=== PATIENT | male | born 1970 | race Caucasian/White ===

== ENCOUNTER 2021-07-26 16:38 | Inpatient (IN) | payer SELFPAY ==
[~2021-07-26] VITALS: Ht 182.9 cm; Wt 78.0 kg
[2021-07-26] MEDS ORDERED: ENOXAPARIN 40 MG/0.4 ML (LOVENOX) SYR SC SCH (16:45)
[2021-07-26 17:30] VITALS: BP 166/107
[2021-07-26 19:53] VITALS: BP 161/104
[2021-07-26 20:00] VITALS: BP 135/63
[2021-07-26 22:00] VITALS: BP 164/99
[2021-07-27 00:07] VITALS: BP 146/95
[2021-07-27 04:09] VITALS: BP 166/106
[2021-07-27 07:36] VITALS: BP 167/114
[2021-07-27] MEDS: FUROSEMIDE 40 MG/4 ML INJ (LASIX) IVP SCH ×2 (07:38→17:36)
[2021-07-27] MEDS: ASPIRIN 81 MG CHEW (CHILDREN'S ASA) PO SCH (08:01)
--- NOTE | 2021-07-27 08:24 | History & Physical-Hospitalist ---
History of Present Illness HPI/Chief Complaint Pt is a 51yoCM who presented to OSH due to SOB. He was admitted to [facility] for acute hypoxic respiratory failure on July 22. This was presumed to be a COPD exacerbation and he was discharged on July 24 with prednisone and Keflex. He is compliant with his medicines but onset of pain in the evening he developed shortness of breath taken to seek evaluation in the emergency department. Chest x-ray revealed pulmonary edema and BNP was elevated to 750. He was hypoxic to the 80s on arrival. He was placed on 6 L/min high flow nasal cannula and given 40 mg of IV Lasix there. This improved his symptoms. He was found to have a mild elation of troponin of 0.07 which trended up to 0.1. He was transferred here for cardiac evaluation. He has not seen a doctor since 1999. He knows of no new medical problems. He does report feeling much better today and shortness of breath is improved. He has been hypertensive throughout his stay here. Source: patient Exam Limitations: no limitations Date Seen 07/27/21 Time Seen by a Provider: 08:22 Attending Physician Jagruti Chan MD PCP Referring Physician Date of Admission Jul 26, 2021 at 17:22 Home Medications & Allergies Home Medications Reviewed patient Home Medication Reconciliation performed by pharmacy medication reconciliations flight technician and/or nursing. Patients Allergies have been reviewed. Allergies Allergies Coded Allergies Penicillins (Verified Allergy, Mild, 07/26/21) NAUSEA- HAS BEEN 30 YEARS SINCE HE'S TAKEN ANY Past [id number] Hx Patient Social History Tobacco Use?: Yes Smoking Status: Current Everyday Smoker Smokeless Tobacco Frequency: Current Everyday User Substance use?: No Alcohol Use?: No Pt feels they are or have been: No Current Status Advance Directives: No Communicates: Verbally Primary Language: Faroese Is interpretation needed?: No Sensory deficits: Vision impairment Past Medical History Hypertension Family Medical History Reviewed Nursing Family Hx mom and dad alive- dad on hospice Review of Systems Constitutional: No chills, No fever, No malaise, No weakness EENTM: no symptoms reported Respiratory: cough, dyspnea on exertion, orthopnea, short of breath Cardiovascular: No chest pain, No palpitations Gastrointestinal: No abdominal pain, No constipation, No diarrhea, No nausea, No vomiting Genitourinary: no symptoms reported Musculoskeletal: no symptoms reported Skin: no symptoms reported Psychiatric/Neurological: No Symptoms Reported Physical Exam Physical Exam Vital Signs Vital Signs - First Documented 07/26/21 17:30 Temp 36.5 Pulse 67 Resp 18 B/P (MAP) 166/107 (126) Pulse Ox 97 O2 Delivery Room Air Capillary Refill : Height, Weight, BMI Height: '" Weight: lbs. oz. kg; 23.31 BMI Method: General Appearance: No Apparent Distress, WD/WN HEENT: PERRL/EOMI, Moist Mucous Membranes; No Scleral Icterus (L), No Scleral Icterus (R) Neck: Normal Inspection, Supple Respiratory: Lungs Clear, No Accessory Muscle Use, No Respiratory Distress Cardiovascular: Regular Rate, Rhythm, No Murmur Gastrointestinal: Normal Bowel Sounds, Non Tender, Soft Extremity: Normal Capillary Refill, No Calf Tenderness, No Pedal Edema Neurologic/Psychiatric: Alert, Oriented x3, Normal Mood/Affect Results Results/Procedures Labs Laboratory Tests 07/27/21 08:35 Patient resulted labs reviewed. Assessment/Plan Admission Diagnosis Acutely decompensated heart failure Admission Status: Inpatient Order (span 2 midnights) Reason for Inpatient Admission: see below Assessment and Plan Acutely decompensated heart failure Acute hypoxic respiratory failure NSTEMI HTN Cardiology consulted, appreciate recs Continue Metoprolol Continue Lasix Echo revealed EF of 40-45%, Lisinopril added Planning cardiac cath per cardiology note Monitor BP as remains elevated with metoprolol Lovenox, therapeutic dose for NSTEMI Hyperglycemia Check fasting in AM Likely undiagnosed DM or prediabetes as has not seen a physician in 17 years Elevated creatinine Creatinine 1.32, unsure of baseline Trend Tobacco abuse Recommended cessation DVT ppx: Lovenox JAGRUTI CHAN MD Jul 27, 2021 08:24
[2021-07-27 08:45] LABS: HEMATOCRIT 44 % (40-54); HEMOGLOBIN 14.5 g/dL (13.3-17.7); MEAN CORPUSCULAR HEMOGLOBIN 29 pg (25-34); MEAN CORPUSCULAR HGB CONC 33 g/dL (32-36); MEAN CORPUSCULAR VOLUME 88 fL (80-99); MEAN PLATELET VOLUME 10.5 fL (9.0-12.2); PLATELET COUNT 232 10^3/uL (130-400)
[2021-07-27] MEDS ORDERED: FUROSEMIDE 40 MG/4 ML INJ (LASIX) IV SCH (09:00)
--- NOTE | 2021-07-27 09:04 | Consultation-Cardiology ---
HPI-Cardiology Cardiology Consultation Date of Consultation 07/27/21 Date of Admission Time Seen by Provider: 08:22 Indication: Dyspnea, elevated BNP and troponin HPI Patient is a 51 y/o male with history of tobaccoism. Does not regularly follow with a physician. Presented to [facility] on Sunday with acute, abrupt onset of dyspnea, acute respiratory, had elevated BNP, mildly elevated troponin. CTA chest was negative for PE. Treated for possible pneumonia and discharged home on the on antibiotic, steroid, Toprol XL and ASA. Patient reports he began to be more short of breath at home and returned to ER on 07/26/21 and transferred to [facility]. Upon interviewing patient he denies any chest pain, states dyspnea has improved. Denies dizziness, lightheadedness or syncope. Denies any peripheral edema 51 years old gentleman admitted with increasing shortness of breath, sudden onset, had leukocytosis initially, seen in [facility] and discharged home return for severe dyspnea, had elevated BNP and troponin, no chest pain. No syncope. Home Medications & Allergies Allergies: Coded Allergies: Penicillins (Verified Allergy, Mild, 07/26/21) NAUSEA- HAS BEEN 30 YEARS SINCE HE'S TAKEN ANY Home Medication List Reviewed: Yes [id number] Hx Patient Social History Marital Status: Employed/Student: employed Smoking Status: Current Everyday Smoker Have you traveled recently?: No Alcohol Use?: No Past Medical History HTN, Tobaccoism Family Medical History Significant Family History: No Pertinent Family Hx Family Medical Hx Strong family history of heart disease with multiple family members Review of Systems-General Review of Systems Constitutional: no symptoms reported, see HPI, chills; No dizziness, No fever, No weakness EENTM: see HPI, no symptoms reported; No blurred vision, No double vision Respiratory: see HPI, dyspnea on exertion, orthopnea, short of breath; No wheezing Cardiovascular: see HPI; No chest pain; edema; No Hx of Intervention, No palpitations Gastrointestinal: no symptoms reported, see HPI; No abdominal pain, No constipation Genitourinary: see HPI; No dysuria, No frequency Musculoskeletal: see HPI; No back pain, No joint pain Skin: see HPI; No lesions Psychiatric/Neurological: See HPI Reviewed Test Results Reviewed Test Results Lab Laboratory Tests 07/27/21 08:35: White Blood Count 10.0, Red Blood Count 5.01, Hemoglobin 14.5, Hematocrit 44, Mean Corpuscular Volume 88, Mean Corpuscular Hemoglobin 29, Mean Corpuscular Hemoglobin Concent 33, Red Cell Distribution Width 13.8, Platelet Count 232, Mean Platelet Volume 10.5, Sodium Level 137, Potassium Level 3.3L, Chloride Level 100, Carbon Dioxide Level 23, Anion Gap 14, Blood Urea Nitrogen 21H, Creatinine 1.32H, Estimat Glomerular Filtration Rate 57, BUN/Creatinine Ratio 16, Glucose Level 154H, Calcium Level 8.8, Troponin I 0.114H, B-Type Natriuretic Peptide 398.2H ECG Impression ECG Initial ECG Rhythm: Normal Sinus Physical Exam Physical Exam Vital Signs Vital Signs - First Documented 07/26/21 17:30 Temp 36.5 Pulse 67 Resp 18 B/P (MAP) 166/107 (126) Pulse Ox 97 O2 Delivery Room Air Capillary Refill : Height, Weight, BMI Height: '" Weight: lbs. oz. kg; 23.31 BMI Method: General Appearance: No Apparent Distress, WD/WN HEENT: PERRL/EOMI, Normal ENT Inspection Neck: Non Tender, Supple Respiratory: Chest Non Tender, Lungs Clear Cardiovascular: Regular Rate, Rhythm, No Edema, No JVD, No Murmur, Normal Peripheral Pulses Gastrointestinal: Non Tender, Soft Extremity: Non Tender, No Calf Tenderness, No Pedal Edema Neurologic/Psychiatric: Alert, Oriented x3 A/P-Cardiology Admission Diagnosis Dyspnea Elevated BNP Elevated troponin HTN Assessment/Plan Congestive heart failure, acute left ventricular systolic dysfunction, unknown etiology, probably ischemic in nature. Noted to have elevated BNP and mild elevation in troponin. I will proceed with left heart catheterization possible PTCA Shortness of breath, angina equivalent. No chest pain was reported. Planning to proceed with heart catheterization possible PTCA. Echocardiogram done showing diffuse left ventricular hypokinesia with ejection fraction 40 to 45%. Monitor and planning to initiate beta-blockers and BETH inhibitors Mild elevation in troponin, severe cardiomyopathy. Planning for cardiac catheterization. Hypertension, started on Toprol-XL 25 mg daily, I will add lisinopril 5 mg daily and evaluate tolerance and response Questionable HLP, I will evaluate lipid profile Renal insufficiency, continue to monitor renal function Hyperglycemia, probable undiagnosed DM, management per medical services Hypokalemia, replace and continue to monitor. Obesity Tobaccoism Thank you for allowing us to participate in the management of Mr. Wray. This is Jimenez Lomeli PA-C, as a scribe for Dr. Thomas. Patient was seen and evaluated with Jimenez, examination performed, management plan was discussed, agree with the current scribed note, I made few changes to the note using Italic font JIMENEZ BORGES Jul 27, 2021 09:04 BETH THOMAS MD Jul 27, 2021 13:19
[2021-07-27 09:07] LABS: CALCIUM 8.8 MG/DL (8.5-10.1); CREATININE SERUM 1.32 MG/DL (0.60-1.30); POTASSIUM 3.3 MMOL/L (3.6-5.0)
[2021-07-27] MEDS ORDERED: METO-333 PO (09:22)
[2021-07-27] MEDS ORDERED: CEPH500C PO (09:22)
[2021-07-27] MEDS ORDERED: ASPI-1238 PO (09:22)
[2021-07-27] MEDS ORDERED: PRD10T PO (09:22)
[2021-07-27] MEDS: ENOXAPARIN 80 MG/0.8 ML (LOVENOX) SYR SC SCH ×2 (09:33→19:55)
[2021-07-27] MEDS: NS IV 1000 ML 1,000 ML IV SCH ×3 (11:31→19:55)
[2021-07-27 11:39] VITALS: BP 150/100
[2021-07-27] MEDS ORDERED: KCL 20 MEQ TAB (K-DUR) PO ONE (12:00)
[2021-07-27] MEDS ORDERED: LIDOCAINE 1% INJ 20 ML 20 ML VIAL ONE (15:49)
[2021-07-27] MEDS ORDERED: HEParin (CATH LAB) 2,000 ML IV ONE (15:50)
[2021-07-27 16:06] VITALS: BP 173/98
[2021-07-27] MEDS ORDERED: fentaNYL INJ 100 MCG/2 ML AMP ONE (16:07)
[2021-07-27] MEDS ORDERED: MIDAZOLAM 5 MG/5 ML (VERSED) VIAL ONE (16:07)
[2021-07-27] MEDS ORDERED: VERAPAMIL 5 MG/2 ML (CALAN) VIAL IV ONE (16:23)
[2021-07-27] MEDS ORDERED: HEParin 1000 UNIT/ML (10ML VIAL) FOR BOLUS ONE (16:24)
[2021-07-27] MEDS ORDERED: NITRO DRIP 25000 MCG/D5W 250 ML IV ONE (16:24)
--- NOTE | 2021-07-27 17:04 | Conscious Sedation/ASA ---
Conscious Sedation Pre-Proced Time 14:00 ASA Score 3 For ASA 3 and 4: Consider anesthesia and medical clearance. Also, for patients with a history of failed moderate sedation consider anesthesia. Airway Lungs Heart ASA score ASA 1: a normal healthy patient ASA 2: a patient with a mild systemic disease (mid diabetes, controlled hypertension, obesity x ASA 3: a patient with a severe systemic disease that limits activity (angina, COPD, prior Myocardial infarction) ASA 4: a patient with an incapacitating disease that is a constant threat to life (CHF, renal failure) ASA 5: a moribund patient not expected to survive 24 hrs. (ruptured aneurysm) ASA 6: a declared brain- patient whose organs are being harvested. For emergent operations, add the letter E after the classification Mallampati Classification Grade 3 Sedation Plan Analgesia, Amnesia, Plan communicated to team members, Discussed options with patient/fam, Discussed risks with patient/fam The patient is an appropriate candidate to undergo the planned procedure, sedation, and anesthesia. The patient immediately re-assessed prior to indication. BETH JORGENSEN MD Jul 27, 2021 17:04
--- NOTE | 2021-07-27 17:07 | Cardiac Cath Report ---
Cardiac Cath Report Physician (s)/Hydroelectric Production Manager (s) Physician BETH JORGENSEN MD Pre-Procedure Diagnosis Pre-Procedure Diagnosis: CAD Post-Procedure Note Procedure Start Date: Jul 27, 2021 Name of Procedure: Left heart catheterization Findings/Procedure Note PROCEDURE NOTE: 51 years old gentleman admitted with non-ST elevation myocardial infarction, congestive heart failure, scheduled for cardiac catheterization possible PTCA After explaining the procedure to the patient, all pros and cons were explained, all questions were answered. The patient signed the consent and then he was placed on the cardiac catheterization laboratory. Groin was prepped SL fashion local anesthesia was used. Sheath placed in the right radial artery, Desha catheter was advanced to the left ventricular cavity, pressure was measured, pullback LV to aorta was done, intubated the right and left coronary system, angiogram was done. Patient was noted to have total occlusion of the first obtuse marginal branch with some collateral filling the distal obtuse marginal branch. I decided to attempt intervention, given a total of 7000 units of heparin, I tried with a EBU guide, FL guide, BMW wire and whisper wire, I had difficulty crossing the lesion and was unable to advance a balloon. 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 I decided to abort the procedure. Angiogram showed no changes. At the end of the procedure the sheath was removed. Vascular band deployed FINDINGS: Hemodynamics LV 147/24, end-diastolic pressure of 24 Aorta 151/96 mean of 118 ANATOMY: Left Main has no obstructive disease Left Anterior Descending is slightly tortuous with mild to moderate disease in the proximal and midportion nonobstructive disease Left Circumflex has mild to moderate disease, total occlusion of the first obtuse marginal branch, attempt for intervention failed to reestablish flow. Right Coronary Artery is moderate in size with nonobstructive disease LV Gram was not done, pressure was measured CONCLUSION: 1. Total occlusion of the first obtuse marginal branch, small to moderate in size, attempt to cross the lesion with multiple wires and balloon has failed. Appeared to have collateral filling the distal which is a hairline artery. 2. Mild to moderate disease otherwise 3. Normal left ventricular size and function DISCUSSION AND RECOMMENDATION: I will maximize medical therapy with aspirin, Plavix, statin, beta-blockers and ARB. Anesthesia Type: Conscious Sedation Estimated blood loss (mL): 50 ml Contrast Amount: 161 ml Total Radiation Dose: 2101 mGy Post-Procedure Diagnosis Post-operative diagnosis: NSTEMI Congestive heart failure, acute left ventricular systolic dysfunction, ischemic cardiomyopathy Hypertension Hyperlipidemia BETH JORGENSEN MD Jul 27, 2021 17:07
[2021-07-27] MEDS ORDERED: LOSARTAN 25 MG (COZAAR) TAB PO ONE (17:15)
[2021-07-27] MEDS ORDERED: CLOPIDOGREL 300 MG (PLAVIX) TABLET PO ONE (17:15)
[2021-07-27 19:57] VITALS: BP 150/95
[2021-07-28] VITALS: BP 146/93
[2021-07-28 03:44] VITALS: BP 137/84
[2021-07-28] MEDS: NS IV 1000 ML 1,000 ML IV SCH ×2 (03:45→06:41)
[2021-07-28] MEDS ORDERED: KCL 20 MEQ TAB (K-DUR) PO SCH (06:00)
[2021-07-28] MEDS ORDERED: MAGNESIUM 1 GM/100 ML IVPB 100 ML IV SCH (06:00)
[2021-07-28] MEDS ORDERED: POTASSIUM CL 10MEQ/50ML IVPB 50 ML IV SCH (06:00)
[2021-07-28 06:24] LABS: HEMATOCRIT 40 % (40-54); HEMOGLOBIN 13.1 g/dL (13.3-17.7); MEAN CORPUSCULAR HEMOGLOBIN 29 pg (25-34); MEAN CORPUSCULAR HGB CONC 33 g/dL (32-36); MEAN CORPUSCULAR VOLUME 88 fL (80-99); MEAN PLATELET VOLUME 10.7 fL (9.0-12.2); PLATELET COUNT 217 10^3/uL (130-400); WHITE BLOOD COUNT 10.3 10^3/uL (4.3-11.0)
[2021-07-28 06:42] LABS: ALBUMIN 3.2 GM/DL (3.2-4.5); POTASSIUM 3.5 MMOL/L (3.6-5.0)
[2021-07-28 06:43] LABS: CALCIUM 8.3 MG/DL (8.5-10.1)
[2021-07-28] MEDS: FUROSEMIDE 40 MG/4 ML INJ (LASIX) IVP SCH (06:45)
[2021-07-28 06:46] LABS: BILIRUBIN,TOTAL 0.9 MG/DL (0.1-1.0)
[2021-07-28 06:48] LABS: CREATININE SERUM 1.21 MG/DL (0.60-1.30)
[2021-07-28 06:51] LABS: MAGNESIUM 2.2 MG/DL (1.6-2.4)
[2021-07-28] MEDS ORDERED: LOSA25TA41 PO (07:57)
[2021-07-28] MEDS ORDERED: ATOR20TA66 PO (07:57)
[2021-07-28] MEDS ORDERED: FURO-124 PO (07:57)
[2021-07-28] MEDS ORDERED: CLOP75TA28 PO (07:57)
[2021-07-28] MEDS ORDERED: POTA10TA36 PO (07:57)
[2021-07-28] MEDS: ASPIRIN 81 MG CHEW (CHILDREN'S ASA) PO SCH (08:13)
[2021-07-28] MEDS: ENOXAPARIN 80 MG/0.8 ML (LOVENOX) SYR SC SCH (08:14)
[2021-07-28 08:19] VITALS: BP 119/66
--- NOTE | 2021-07-28 08:42 | Cardiology Progress Note ---
Subjective Date Seen by Provider: Jul 28, 2021 Time Seen by Provider: 08:41 Subjective/Events-last exam Patient is sitting comfortably in bed, feeling better. No new complaint. No chest pain Review of Systems General: No Chills, No Night Sweats, No Fatigue, No Malaise, No Appetite, No Ot her HEENT: No Head Aches, No Visual Changes, No Eye Pain, No Ear Pain, No Dysp hasia, No Sinus Congestion, No Post Nasal Drip, No Sore Throat, No Other Pulmonary: No Dyspnea, No Cough, No Pleuritic Chest Pain, No Other Cardiovascular: No: Chest Pain, Palpitations, Orthopnea, Paroxysmal Noc. Dyspnea, Edema, Lt Headedness, Other Objective-Cardiology Exam Last Set of Vital Signs Vital Signs 07/28/21 07/28/21 07/28/21 08:12 08:19 08:22 Temp 36.6 Pulse 71 Resp 16 B/P (MAP) 119/66 (83) Pulse Ox 97 O2 Delivery Room Air I&O Intake and Output 07/27/21 23:59 Intake Total 450 ml Output Total 3100 ml Balance -2650 ml Intake Oral 450 ml Output Urine Total 3100 ml # Voids 1 # Bowel Movements 1 General: Alert, Oriented X3, Cooperative HEENT: Atraumatic, PERRLA Neck: Supple, No JVD, No Thyromegaly Lungs: Clear to Auscultation, Normal Air Movement Heart: Regular Rate, Normal S1, Normal S2, No Murmurs Abdomen: Normal Bowel Sounds, Soft, No Tenderness, No Hepatosplenomegaly, No Masses Extremities: No Clubbing, No Cyanosis, No Edema, Normal Pulses, No Tenderness/Swelling Skin: No Rashes, No Breakdown, No Significant Lesion Neuro: Normal Gait, Normal Speech, Strength at 5/5 X4 Ext, Normal Tone, Sensation Intact Psych/Mental Status: Mental Status NL, Mood NL Results Lab Laboratory Tests 07/28/21 05:35 07/28/21 05:55 A/P-Cardiology Admission Diagnosis Dyspnea Elevated BNP Elevated troponin HTN Assessment/Plan Congestive heart failure, acute left ventricular systolic dysfunction, unknown etiology, probably ischemic in nature. Noted to have elevated BNP and mild elevation in troponin. I will proceed with left heart catheterization possible PTCA Shortness of breath, angina equivalent. No chest pain was reported. Planning to proceed with heart catheterization possible PTCA. Echocardiogram done showing diffuse left ventricular hypokinesia with ejection fraction 40 to 45%. Monitor and planning to initiate beta-blockers and BETH inhibitors Mild elevation in troponin, coronary artery disease status post cardiac catheterization and attempt for intervention on the obtuse marginal branch done on July 27, 2021. 1. Total occlusion of the first obtuse marginal branch, small to moderate in size, attempt to cross the lesion with multiple wires and balloon has failed. Appeared to have collateral filling the distal which is a hairline artery. 2. Mild to moderate disease otherwise 3. Normal left ventricular size and function Hypertension, started on Toprol-XL 25 mg daily, I will add lisinopril 5 mg daily and evaluate tolerance and response Questionable HLP, I will evaluate lipid profile Renal insufficiency, continue to monitor renal function Hyperglycemia, probable undiagnosed DM, management per medical services Hypokalemia, replace and continue to monitor. Obesity Tobaccoism BETH JORGENSEN MD Jul 28, 2021 08:42
--- NOTE | 2021-07-28 08:45 | Discharge Summary ---
Diagnosis/Chief Complaint Date of Admission Jul 26, 2021 at 17:22 Date of Discharge Admission Diagnosis Acutely decompensated heart failure Primary Care Discharge Summary Procedures/Consulations Cardiology- Dr Thomas Discharge Physical Exam Allergies: Coded Allergies: Penicillins (Verified Allergy, Mild, 07/26/21) NAUSEA- HAS BEEN 30 YEARS SINCE HE'S TAKEN ANY Vitals & I&Os Vital Signs Date Time Temp Pulse Resp B/P (MAP) Pulse Ox O2 Delivery O2 Flow Rate FiO2 07/28/21 09:46 07/28/21 08:22 97 Room Air 07/28/21 08:19 71 16 07/28/21 08:12 36.6 07/27/21 04:09 2.00 General Appearance: No Apparent Distress, WD/WN Respiratory: Lungs Clear, No Respiratory Distress Cardiovascular: Regular Rate, Rhythm, No Murmur Neurologic/Psychiatric: Alert, Oriented x3 Hospital Course Patient was admitted to the hospital due to acutely decompensated systolic heart failure. He was diuresed and did well and was able to be titrated off of oxygen completely. He is quite hypertensive and given his history with recurrent episodes of respiratory failure cardiology was consulted and elected to proceed with cardiac cath. This revealed chronic total occlusion of OM. This was unable to be stented. He was started on aggressive conservative measures instead with aspirin and Plavix and a statin. He is to follow-up with Dr. Fernandez for further cardiac care and he already has an appointment to establish care with [facility]. Labs (last 24 hrs) Patient resulted labs reviewed. Pending Labs Discussion & Recommendations Discharge Planning: >30 minutes discharge planning Discharge Home Medications: Active Scripts Active Potassium Chloride 10 Meq Tab.er.prt 10 Meq PO DAILY Lasix (Furosemide) 40 Mg Tablet 40 Mg PO DAILY Losartan Potassium 25 Mg Tablet 25 Mg PO DAILY Atorvastatin Calcium 20 Mg Tablet 20 Mg PO HS Clopidogrel (Clopidogrel Bisulfate) 75 Mg Tablet 75 Mg PO DAILY Reported Metoprolol Tartrate 25 Mg Tablet 25 Mg PO BID Aspirin EC (Aspirin) 81 Mg Tablet. 81 Mg PO HS Instructions to patient/family Please see electronic discharge instructions given to patient. JAGRUTI SIMPSON MD Jul 28, 2021 08:45
--- NOTE | 2021-07-28 08:49 | Discharge Inst-Simple/Standard ---
Discharge Inst-Standard Patient Instructions/Follow Up Plan of Care/Instructions/FU: Please continue to take your medications as written. Please follow up with your primary care doctor as scheduled and with Dr Thomas in 2 weeks. Activity as Tolerated: Yes Discharge Diet: Low Sodium Diet Return to The Hospital For: Chest pain, shortness of breath, leg swelling, if you feel you are getting worse. JAGRUTI SIMPSON MD Jul 28, 2021 08:49
[2021-07-28] MEDS ORDERED: LOSARTAN 25 MG (COZAAR) TAB PO SCH (09:00)
[2021-07-28] MEDS ORDERED: CLOPIDOGREL 75 MG (PLAVIX) TABLET PO SCH (09:00)
== END 2021-07-28 09:45 | disposition home or self-care (01) | DRG 280 ==
LOC: CSD 17:22
PROVIDERS: ADMIT Family Medicine; ATTEND Family Medicine
PROC: 4A023N7 Measurement of Cardiac Sampling and Pressure, Left Heart, Percutaneous Approach (ICD-10-PCS; principal; 2021-07-27)
PROC: 02JY3ZZ Inspection of Great Vessel, Percutaneous Approach (ICD-10-PCS; 2021-07-27)
PROC: B2111ZZ Fluoroscopy of Multiple Coronary Arteries using Low Osmolar Contrast (ICD-10-PCS; 2021-07-27)
DX: I21.4 Non-ST elevation (NSTEMI) myocardial infarction (principal); I50.21 Acute systolic (congestive) heart failure; J96.01 Acute respiratory failure with hypoxia; I11.0 Hypertensive heart disease with heart failure; I25.5 Ischemic cardiomyopathy; I25.119 Atherosclerotic heart disease of native coronary artery with unspecified angina pectoris; F17.210 Nicotine dependence, cigarettes, uncomplicated; E78.5 Hyperlipidemia, unspecified; N28.9 Disorder of kidney and ureter, unspecified; E11.65 Type 2 diabetes mellitus with hyperglycemia; E87.6 Hypokalemia; E66.9 Obesity, unspecified; Z68.23 Body mass index [BMI] 23.0-23.9, adult; Z82.49 Family history of ischemic heart disease and other diseases of the circulatory system; Z88.0 Allergy status to penicillin
CPT/HCPCS: 36415; 80048; 80053; 80061; 83735; 83880; 84484; 85027; 85347; 93306; 93458

== ENCOUNTER 2021-08-21 09:04 | Emergency (ER) | payer SELFPAY ==
[~2021-08-21] VITALS: Ht 182.8 cm; Wt 113.3 kg
[~2021-08-21 09:04] MED LIST: ASPI-1238 PO; ATOR20TA66 PO; CEPH500C PO; CLOP75TA28 PO; FURO-124 PO; LOSA25TA41 PO; METO-333 PO; POTA10TA36 PO; PRD10T PO
--- NOTE | 2021-08-21 09:54 | ED Integumentary General ---
General Chief Complaint: Allergic Reaction Stated Complaint: RASH Nursing Triage Note: Pt to ED c/o rash to various areas of body, mostly c/o right arm. Pt was seen at clinic on sunday and prescribed steroids and told to go to ED if rash got worse. Source: patient Exam Limitations: no limitations (HEMANTH MCCULLOUGH STUDENT) History of Present Illness Date Seen by Provider: Aug 21, 2021 Time Seen by Provider: 09:17 Initial Comments This is Hans a 51 yo male that presented to the ED via private vehicle with the chief complaint of rash over bilateral arms. Symptoms began morning when he noticed swelling in his feet, hands, and armpits bilaterally. On Sunday morning the symptoms were worsening so he went to [facility] walk-in clinic where he was prescribed medications for an allergic reaction. Pt stated that this morning he notices swelling in his face primarily over the left eye and hive on bilateral arms. He states that he had some difficulty swallowing this morning but denied difficulty breathing or swelling in his throat or mouth. 3 weeks ago he was hospitalized for heart failure and prescribed multiple new medications. He has a known drug allergy to penicillin. Timing/Duration: week, changing over time Severity: mild Location: face, torso, hands, feet, extremities Possible Cause: medications Modifying Factors: improves with antihistamine, improves with prednisone, improves with scratching Associated Symptoms: change in skin texture; No fever, No headache; hives, swelling/mass/lumps (HEMANTH MCCULLOUGH STUDENT) Allergies and Home Medications Allergies Coded Allergies: atorvastatin (Verified Allergy, Intermediate, Rash, 08/21/21) Hives. Several medications started at the same time. Atorvastatin is the most likely cause based on timing. Penicillins (Verified Allergy, Mild, 07/26/21) NAUSEA- HAS BEEN 30 YEARS SINCE HE'S TAKEN ANY Patient Home Medication List Aspirin (Aspirin EC) 81 Mg Tablet., 81 MG PO HS, (Reported) Entered as Reported by: TERESA LECHUGA on 07/27/21 09 Atorvastatin Calcium (Atorvastatin Calcium) 20 Mg Tablet, 20 MG PO HS Prescribed by: JAGRUTI SIMPSON on 07/28/21 075 Clopidogrel Bisulfate (Clopidogrel) 75 Mg Tablet, 75 MG PO DAILY Prescribed by: JAGRUTI SIMPSON on 07/28/21 075 Furosemide (Lasix) 40 Mg Tablet, 40 MG PO DAILY Prescribed by: JAGRUTI SIMPSON on 07/28/21756 Losartan Potassium (Losartan Potassium) 25 Mg Tablet, 25 MG PO DAILY Prescribed by: JAGRUTI SIMPSON on 07/28/21756 Metoprolol Tartrate (Metoprolol Tartrate) 25 Mg Tablet, 25 MG PO BID, (Reported) Entered as Reported by: TERESA LECHUGA on 07/27/21 09 Potassium Chloride (Potassium Chloride) 10 Meq Tab.er.prt, 10 MEQ PO DAILY Prescribed by: JAGRUTI SIMPSON on 07/28/21756 Review of Systems Review of Systems Constitutional: no symptoms reported EENTM: other (eye swelling) Respiratory: no symptoms reported Cardiovascular: no symptoms reported Gastrointestinal: no symptoms reported Genitourinary: no symptoms reported Musculoskeletal: no symptoms reported Skin: see HPI, rash, other (swelling) Psychiatric/Neurological: No Symptoms Reported Endocrine: No Symptoms Reported Hematologic/Lymphatic: No Symptoms Reported (HEMANTH MCCULLOUGH STUDENT) Past Zapwcyt-Pjawpx-Hlyaxd Hx Patient Social History Tobacco Use?: Yes Tobacco type used: Cigarettes Smoking Status: Current Everyday Smoker Substance use?: No Alcohol Use?: No (HEMANTH MCCULLOUGH STUDENT) Past Medical History Surgery/Hospitalization HX: HTN, heart cath Hypertension (HEMANTH MCCULLOUGH) Family Medical History No Pertinent Family Hx mom and dad alive- dad on hospice (HEMANTH MCCULLOUGH STUDENT) Physical Exam Vital Signs Vital Signs - First Documented 08/21/21 09:14 Temp 36.6 Pulse 93 Resp 16 B/P (MAP) 162/110 (127) Pulse Ox 97 O2 Delivery Room Air (YAZ BROWN MD) Vital Signs Capillary Refill : Less Than 3 Seconds (HEMANTH MCCULLOUGH STUDENT) General Appearance: WD/WN, no apparent distress HEENT: PERRL/EOMI, pharynx normal, other (swelling above left eye) Neck: non-tender, supple, normal inspection Cardiovascular: normal peripheral pulses, regular rate, rhythm, no edema, no gallop, no murmur Respiratory: chest non-tender, lungs clear, normal breath sounds, no respiratory distress, no accessory muscle use Gastrointestinal: normal bowel sounds, non tender, soft Extremities: non-tender, swelling Neurologic/Psychiatric: no motor/sensory deficits, alert, normal mood/affect, oriented x 3 Skin: normal color, warm/dry, rash Skin Problem Location: face, upper extremities, lower extremities Skin Problem Character: rash, swelling (HEMANTH MCCULLOUGH MED STUDENT) Progress/Results/Core Measures Results/Orders Vital Signs/I&O 08/21/21 09:14 Temp 36.6 Pulse 93 Resp 16 B/P (MAP) 162/110 (127) Pulse Ox 97 O2 Delivery Room Air (YAZ BROWN MD) Blood Pressure Mean: 127 Progress Progress Note : Progress Note Hives seems to be worse in the morning. Patient takes metoprolol and atorvastatin at night. Atorvastatin was started more recently than metoprolol. Based on timing of medication dosing and allergy profiles of his medications, atorvastatin seems to be the most likely culprit. It also seems to be the safest medication to stop in a trial of investigating the cause of hives. Patient was advised not to take atorvastatin until further instructed. Atorvastatin was added to his hospital allergy list. He was instructed to change this next time he is here if he finds out atorvastatin was not the cause. He should notify Dr. Contreras and Dr. Thomas in the morning of his reaction. See discharge instructions for further discussion. (YAZ BROWN MD) Departure Impression Primary Impression: Hives Additional Impression: Medication reaction Qualified Codes: T50.905A - Adverse effect of unspecified drugs, medicaments and biological substances, initial encounter Disposition: 01 HOME, SELF-CARE Condition: Stable Departure-Patient Inst. Referrals: TERESA CONTRERAS DO (PCP/Family) Primary Care Physician Patient Instructions: Hives, Adverse Drug Reactions, Adult (DC) Add. Discharge Instructions: Stop atorvastatin until otherwise directed. You may take your medications prescribed for allergic reaction this morning. You may repeat the Pepcid (Famotidine) 40 mg again tonight if needed. If you have notable swelling of the lips, tongue, or throat or if you develop difficulty breathing, please take 50 mg of Benadryl (diphenhydramine) and immediately return to the ER or call [address]. [address] Contreras and Dr. Thomas's offices in the morning to report your reaction. Notify them you have been instructed to stop atorvastatin. You may need to work with these physicians to replace atorvastatin or to work through your medication list to determine which medications to stop next if stopping atorvastatin does not relieve the hives. Call with questions or concerns. Return to the ER if you have any other worsening of condition or other significant concerns. All discharge instructions reviewed with patient and/or family. Voiced understanding. Copy Copies To 1: BETH THOMAS MD Copies To 2: TERESA CONTRERAS DYLAN MED STUDENT Aug 21, 2021 09:54 YAZ BROWN MD Aug 21, 2021 10:01
[2021-08-21 10:10] VITALS: BP 162/110
== END 2021-08-21 10:10 | disposition home or self-care (01) ==
LOC: EDUNIT# 09:04 → ER 09:08
DX: L50.9 Urticaria, unspecified (principal); T36.0X5A Adverse effect of penicillins, initial encounter; I10 Essential (primary) hypertension; F17.210 Nicotine dependence, cigarettes, uncomplicated; Z95.9 Presence of cardiac and vascular implant and graft, unspecified; Z79.82 Long term (current) use of aspirin; Z79.01 Long term (current) use of anticoagulants; Z79.899 Other long term (current) drug therapy
CPT/HCPCS: 99281